=== PATIENT | male | born 2000 | race Caucasian/White ===

== ENCOUNTER 2023-11-12 20:08 | Emergency (ER) | payer SELFPAY ==
[2023-11-12 20:08] VITALS: BP 132/82; PULSE 78; RESP 18; TEMP 36.4; O2SAT 99; BMI 21.5
--- NOTE | 2023-11-12 22:13 | EDS_ITS ---
HPI HPI - GI History of Present Illness Chief Complaint: Nausea/Vomiting/Diarrhea Informant: patient and parent Abdominal Pain/Flank Pain Onset: Days (2) Timing: Intermittent Quality: Cramping Location: - (Periumbilical) Current Severity: Mild Maximum Severity: Moderate Relieved by: - (Diarrhea) Nausea/Vomiting/Emesis GI Symptom: Positive for Nausea and Vomiting Onset: Days (2) Quality: Positive for Nonbilious Severity: Moderate Diarrhea/Melena/Hematochezia GI Symptom: Positive for Diarrhea Onset: Days (2) Stool Quality: Positive for Watery Severity: Moderate Associated Symptoms Associated Symptoms: Negative for Dysuria, Frequency or Hematuria Narrative Narrative: 22-year-old male couple days of vomiting and diarrhea followed by abdominal cramping, was worst yesterday than it has been today he has been drinking lots of Powerade today keeping it down for the most part. Subjective fevers a couple times but did not check his temperature. Sister was sick with similar lasted a week or 2 total but better now. Had close contact with her, Since they live together. [facility] Medical History (Updated 11/12/23 @ 22:[address] Gagan Sumner MD) Asthma Home Medications ondansetron 8 mg disintegrating tablet 8 mg PO Q8H PRN nausea and vomiting #15 tabs 11/12/23 [Rx Last Taken Unknown] Allergy/AdvReac Type Severity Reaction Status Date / Time No Known Allergies Allergy Verified 11/12/23 20:08 Social History Smoking Status: Current every day smoker tobacco type: cigarettes ROS ROS ED Constitutional Constitutional ED: Reports chills, fever(s) and subjective Eyes Eyes: Denies change in vision or diplopia ENT ENT ED: Denies rhinorrhea or sore throat Cardiovascular Cardiovascular: Denies chest pain, lightheadedness, palpitations or syncope Respiratory/Chest Respiratory/Chest: Denies cough or dyspnea Gastrointestinal Gastrointestinal: Reports abdominal pain, diarrhea, nausea and vomiting; Denies hematemesis, hematochezia or melena Genitourinary Genitourinary ED: Denies dysuria or hematuria Musculoskeletal Musculoskeletal: Denies back pain or neck pain Integumentary Denies abscess or rash Neurologic Neurologic: Denies headache(s), paresthesias or weakness Psychiatric Psychiatric: Denies anxiety or suicidal thoughts EXAM Physical Exam Const Vital Signs: 11/12/23 20:08 Temperature 97.6 F L Temperature Source Temporal Pulse Rate 78 Respiratory Rate 18 Blood Pressure 132/82 H Blood Pressure Mean 98 Pulse Ox 99 Positive well nourished and well developed General Appearance ED: well developed and NAD HEENT Reports moist mucous membranes normocephalic and atraumatic Eyes PERRL and EOMs intact bilaterally Neck full ROM and supple Resp normal respiratory effort and clear to auscultation bilaterally Cardio regular rate, regular rhythm and no murmurs GI non-tender and non-distended Auscultation: normoactive bowel sounds Palpation: soft Back/Spine no CVA tenderness General Back: other FROM Extremity normal to inspection General Extremety ED: Negative for edema, pulses abnormal or tenderness General Extremity: Negative for edema or pulses abnormal Neuro oriented x3, CN's II-XII intact bilaterally and no sensory deficits noted Sensorium / Orientation: awake and alert Motor Exam: strength 5/5 throughout Skin no rashes or lesions noted and no wounds MDM MDM MDM Narrative Medical decision making narrative: Patient appears very well. He is making sure he gets a work note to his he was advised. He is not tachycardic, his pulse is in the 60-70 range. He appears hydrated moist oral mucous membranes. He agrees he does not feel dehydrated. I offered him a liter of IV fluids and Zofran, versus just a prescription for Zofran, a pill here, and discharge, he chooses the latter and is comfortable with that plan. Work note given. Likely viral gastroenteritis given sister with it, he has not traveled out of the area or the country recently, no suspicious food poisoning, and if he goes a week and is not getting any better and wants to provide diarrhea for testing he is advised to return he is comfortable with that plan. Discharge Plan Triage Chief Complaint: Nausea/Vomiting/Diarrhea ED Provider: Gagan Sumner Dx/Rx/DC Orders Clinical Impression: Viral gastroenteritis Instructions: Viral Gastroenteritis Prescriptions: New ondansetron 8 mg tablet,disintegrating 8 mg PO Q8H PRN (Reason: nausea and vomiting) Qty: 15 0RF Stand Alone Forms: ED Work / School Excuse Referrals: Doctor,Your [Non-Staff] - 1 Week if not improving (or may return to ER) Disposition Disposition: Home, Self Care
[2023-11-12] MEDS: Ondansetron ODT 4 MG Tablet 8 MG PO (22:30)
[2023-11-12] MEDS: Dicyclomine 10 MG Capsule 20 MG PO (22:30)
[2023-11-12 22:38] VITALS: BP 125/76; PULSE 78; RESP 16; TEMP 36.4; O2SAT 99
== END 2023-11-12 23:12 | disposition home or self-care (01) ==
PROVIDERS: Emergency Provider Emergency Medicine; PCP Family Medicine; Visit Provider Emergency Medicine
DX: A08.4 Viral intestinal infection, unspecified (principal); F17.210 Nicotine dependence, cigarettes, uncomplicated; J45.909 Unspecified asthma, uncomplicated
CPT/HCPCS: 99283